=== PATIENT | male | born 1950 | race Caucasian/White ===

== ENCOUNTER 2021-12-07 13:05 | Inpatient (IN) | payer MEDICARE ==
[~2021-12-07 13:05] MED LIST: Iopamidol-370 76% 500 ML 1 ML ONE
[2021-12-07] MEDS ORDERED: Labetalol HCl 100 MG/20 ML VIAL ONE (13:13)
[2021-12-07 13:20] LABS: #Eosinphils 0.1 thou/uL (0.0-0.7); #Lymphocytes 1.3 thou/uL (1.20-3.40); #Monocytes 0.8 thou/uL (0.11-0.59); #Neutrophils 10.3 thou/uL (1.40-6.50); %Basophils 0.3 % (0.0-1.0); %Eosinophils 0.5 % (0.0-10.0); %Lymphocytes 10.1 % (21.0-51.0); %Monocytes 6.4 % (0.0-10.0); %Neutrophils 82.7 % (42.0-75.0); Hemoglobin 15.5 g/dL (14.0-18.0); Mean Corpuscular HGB CONC 32.4 g/dL (32.0-36.0); Mean Corpuscular Hemoglobin 32.4 pg (27.0-31.0); Mean Corpuscular Volume 99.9 fL (78.0-98.0); Mean Platelet Volume 7.4 fL (7.4-10.4); Platelet Count 251 thou/uL (130-400); RBC Distribution Width 11.9 % (11.5-14.5); White Blood Cell (WBC) Count 12.4 thou/uL (4.8-10.8)
[2021-12-07 13:41] LABS: ALT (SGPT) 19 U/L (8-55); AST (SGOT) 15 U/L (5-34); Albumin 3.3 g/dL (3.4-4.8); Alkaline Phosphatase 90 U/L (40-110); Anion Gap 15 mmol/L (10-20); BUN (Urea Nitrogen) 13 mg/dL (8.4-25.7); Bilirubin, Total 0.9 mg/dL (0.2-1.2); CK (CPK) 35 U/L (30-200); Calc. Creatinine Clearance 0 mL/min (70-130); Calcium 8.5 mg/dL (7.8-10.44); Carbon Dioxide 26 mmol/L (23-31); Chloride 100 mmol/L (98-107); Globulin 2.6 g/dL (2.4-3.5); Glucose 230 mg/dL (80-115); Lipase 22 U/L (8-78); Potassium 3.2 mmol/L (3.5-5.1); Protein, Total 5.9 g/dL (5.8-8.1); Sodium 138 mmol/L (136-145)
[2021-12-07 14:09] LABS: Bilirubin Negative (Negative); Blood, Urine Negative (Negative); Clarity Clear (Clear); Glucose, Urine (Dipstick) 150 mg/dL (Negative); Ketone, Urine Negative (Negative); Leukocyte Negative Leu/uL (Negative); Nitrite Negative (Negative); Protein, Urine (Dipstick) Negative (Neg-Trace); Urobilinogen Normal mg/dL (Less than 2)
[2021-12-07] MEDS ORDERED: Electrolyte Replacement Protocol 1 EACH FS SCH (15:30)
[2021-12-07 15:55] LABS: Magnesium 1.3 mg/dL (1.6-2.6)
[2021-12-07] MEDS ORDERED: Dextrose 5% in Water 1,000 ML IV PRN (16:20)
[2021-12-07] MEDS ORDERED: Dextrose 50% Abboject 50 ML SYRINGE SLOW IVP PRN (16:20)
[2021-12-07] MEDS ORDERED: Ondansetron PF 4 MG/2 ML Vial IVP PRN (16:25)
[2021-12-07] MEDS ORDERED: Acetaminophen 650 MG Suppository PR PRN (16:25)
[2021-12-07] MEDS ORDERED: NS 0.9% w/ 20 MEQ KCL 0 ML ONE (16:41)
[2021-12-07] MEDS: Potassium Chloride 20 MEQ in Premix Bag 1 BAG IVPB SCH (17:12)
[2021-12-07 17:15] LABS: Magnesium 1.3 mg/dL (1.6-2.6)
[2021-12-07 17:20] LABS: Troponin I 0.044 ng/mL (< 0.028)
[2021-12-07] MEDS ORDERED: Labetalol HCl 100 MG/20 ML VIAL SLOW IVP PRN (18:15)
[2021-12-07] MEDS ORDERED: Magnesium Sulfate In Water 4 GM in Premix Bag 1 BAG IVPB SCH (18:45)
[2021-12-07 19:58] LABS: SARS-CoV-2 NAA Rapid Test Not Detected (NotDetected)
[2021-12-07 20:36] LABS: Troponin I 0.043 ng/mL (< 0.028)
[2021-12-07 20:38] VITALS: BMI 30.4
[2021-12-07] MEDS ORDERED: Potassium Chloride 20 MEQ in Sodium Chloride 0.9% 250 ML 250 ML IVPB SCH (21:30)
[2021-12-07] MEDS ORDERED: methylPREDNISolone Sod Succ/PF 125 MG/2 ML VIAL IVP SCH (22:30)
[2021-12-08] MEDS ORDERED: hydrALAZINE 20 MG/ML VIAL SLOW IVP SCH (02:00)
[2021-12-08] MEDS: Potassium Chloride 20 MEQ in Premix Bag 1 BAG IVPB SCH (02:56)
[2021-12-08] MEDS ORDERED: Lidocaine Viscous Sol 2% 15 ml UD Cup FS SCH (03:45)
[2021-12-08] MEDS ORDERED: Lidocaine 2% Jelly 5 ML TUBE TOP SCH (03:45)
[2021-12-08 04:16] LABS: Bilirubin Negative (Negative); Blood, Urine Large (Negative); Glucose, Urine (Dipstick) 100 mg/dL (Negative); Ketone, Urine Negative (Negative); Leukocyte Negative (Negative); Nitrite Negative (Negative); Protein, Urine (Dipstick) 100 mg/dL (Neg-Trace); Specific Gravity, Urine 1.015 (1.005-1.030); Urobilinogen 0.2 mg/dL (Less than 2); pH, Urine 6.5 (5.0-9.0)
[2021-12-08 04:17] LABS: Clarity Cloudy (Clear)
[2021-12-08 04:19] LABS: RBC/HPF Greater than 50 HPF (0-3); WBC/HPF 0-3 HPF (0-3)
[2021-12-08 04:20] LABS: Urine Culture Reflex No No
[2021-12-08] MEDS ORDERED: Phenazopyridine HCl 100 MG TAB PO PRN (05:49)
[2021-12-08] MEDS: HumaLOG 300 UNITS/3 ML VIAL SC PRN ×4 (06:19→20:41)
[2021-12-08] MEDS: Dutasteride 0.5 MG CAP PO SCH (08:55)
[2021-12-08] MEDS: Docusate 100 MG CAP PO SCH ×2 (08:55→20:41)
[2021-12-08] MEDS: Tamsulosin HCl 0.4 MG CAP PO SCH (08:55)
[2021-12-08] MEDS ORDERED: methylPREDNISolone Sod Succ/PF 125 MG/2 ML VIAL IVP SCH (09:00)
[2021-12-08] MEDS ORDERED: Mycophenolate ER 180 MG TAB PO STA (10:17)
[2021-12-08] MEDS ORDERED: Tacrolimus 0.5 MG CAP PO STA (10:17)
[2021-12-08] MEDS ORDERED: predniSONE 5 MG TAB PO SCH (10:30)
[2021-12-08 10:36] LABS: #Lymphocytes 0.8 thou/uL (1.20-3.40); #Monocytes 0.3 thou/uL (0.11-0.59); #Neutrophils 16.8 thou/uL (1.40-6.50); %Eosinophils 0.1 % (0.0-10.0); %Lymphocytes 4.6 % (21.0-51.0); %Monocytes 1.9 % (0.0-10.0); %Neutrophils 93.4 % (42.0-75.0); Hemoglobin 17.2 g/dL (14.0-18.0); Mean Corpuscular HGB CONC 32.3 g/dL (32.0-36.0); Mean Corpuscular Hemoglobin 32.1 pg (27.0-31.0); Mean Corpuscular Volume 99.5 fL (78.0-98.0); Mean Platelet Volume 7.6 fL (7.4-10.4); Platelet Count 293 thou/uL (130-400); Red Blood Cell (RBC) Count 5.36 mill/uL (4.70-6.10); White Blood Cell (WBC) Count 17.9 thou/uL (4.8-10.8)
[2021-12-08 10:56] LABS: Anion Gap 19 mmol/L (10-20); BUN (Urea Nitrogen) 17 mg/dL (8.4-25.7); Calc. Creatinine Clearance 66 mL/min (70-130); Calcium 9.2 mg/dL (7.8-10.44); Carbon Dioxide 23 mmol/L (23-31); Chloride 101 mmol/L (98-107); Cholesterol 158 mg/dl (< 200 Desired); Glucose 346 mg/dL (80-115); HDL Cholesterol 40 mg/dL (>60 Neg Risk); LDL Cholesterol, Calculated 90 mg/dL; Magnesium 2.2 mg/dL (1.6-2.6); Potassium 3.9 mmol/L (3.5-5.1); Sodium 139 mmol/L (136-145); Triglycerides 140 mg/dL (Less than 150)
[2021-12-08] MEDS: Lactated Ringer's 1,000 ML IV SCH (15:01)
[2021-12-08] MEDS: Acetaminophen 325 MG TAB PO PRN (15:01)
[2021-12-08] MEDS ORDERED: traZODone HCl 50 MG TAB PO PRN (15:06)
[2021-12-08] MEDS: Tacrolimus 0.5 MG CAP PO SCH (20:41)
[2021-12-08] MEDS: hydrALAZINE 20 MG/ML VIAL SLOW IVP PRN (20:43)
[2021-12-08] MEDS: Melatonin 3 MG TAB PO PRN (21:42)
[2021-12-08] MEDS: MYCOPHENOLATE 180 MG PO SCH (21:46)
[2021-12-09] MEDS: Lactated Ringer's 1,000 ML IV SCH ×3 (01:15→20:58)
[2021-12-09 05:38] LABS: #Lymphocytes 1.5 thou/uL (1.20-3.40); #Monocytes 1.3 thou/uL (0.11-0.59); #Neutrophils 17.1 thou/uL (1.40-6.50); %Eosinophils 0.1 % (0.0-10.0); %Lymphocytes 7.7 % (21.0-51.0); %Monocytes 6.5 % (0.0-10.0); %Neutrophils 85.7 % (42.0-75.0); Hemoglobin 15.2 g/dL (14.0-18.0); Mean Corpuscular HGB CONC 32.5 g/dL (32.0-36.0); Mean Corpuscular Hemoglobin 32.7 pg (27.0-31.0); Mean Platelet Volume 7.7 fL (7.4-10.4); Platelet Count 254 thou/uL (130-400); RBC Distribution Width 12.1 % (11.5-14.5); Red Blood Cell (RBC) Count 4.63 mill/uL (4.70-6.10); White Blood Cell (WBC) Count 19.9 thou/uL (4.8-10.8)
[2021-12-09] MEDS: HumaLOG 300 UNITS/3 ML VIAL SC PRN ×4 (05:58→20:54)
[2021-12-09 06:01] LABS: Anion Gap 15 mmol/L (10-20); BUN (Urea Nitrogen) 19 mg/dL (8.4-25.7); Calc. Creatinine Clearance 82 mL/min (70-130); Calcium 8.6 mg/dL (7.8-10.44); Carbon Dioxide 25 mmol/L (23-31); Chloride 101 mmol/L (98-107); Glucose 216 mg/dL (80-115); Potassium 3.5 mmol/L (3.5-5.1); Sodium 137 mmol/L (136-145)
[2021-12-09] MEDS ORDERED: Potassium Chloride 20 MEQ TAB PO SCH (08:00)
[2021-12-09] MEDS: Tacrolimus 0.5 MG CAP PO SCH ×2 (08:46→20:46)
[2021-12-09] MEDS: Tamsulosin HCl 0.4 MG CAP PO SCH (08:46)
[2021-12-09] MEDS: Dutasteride 0.5 MG CAP PO SCH (08:46)
[2021-12-09] MEDS: predniSONE 5 MG TAB PO SCH (08:46)
[2021-12-09] MEDS: Docusate 100 MG CAP PO SCH ×2 (08:46→20:42)
[2021-12-09] MEDS: MYCOPHENOLATE 180 MG PO SCH ×2 (08:47→20:43)
[2021-12-09] MEDS ORDERED: cefTRIAXone\\ROCEPHIN 1 GM in Sodium Chloride 0.9% 100 ML IVPB SCH (09:15)
[2021-12-09] MEDS ORDERED: Carvedilol 6.25 MG TAB PO SCH (10:15)
[2021-12-09] MEDS: hydrALAZINE 20 MG/ML VIAL SLOW IVP PRN (19:47)
[2021-12-09] MEDS: Carvedilol 6.25 MG TAB PO SCH (20:42)
[2021-12-09] MEDS: Melatonin 3 MG TAB PO PRN (20:42)
[2021-12-09] MEDS: Acetaminophen 325 MG TAB PO PRN (21:26)
[2021-12-10] MEDS: hydrALAZINE 20 MG/ML VIAL SLOW IVP PRN ×2 (03:58→20:09)
[2021-12-10 05:42] LABS: #Eosinphils 0.1 thou/uL (0.0-0.7); #Lymphocytes 1.6 thou/uL (1.20-3.40); #Monocytes 1.2 thou/uL (0.11-0.59); #Neutrophils 10.2 thou/uL (1.40-6.50); %Basophils 0.3 % (0.0-1.0); %Eosinophils 0.5 % (0.0-10.0); %Lymphocytes 11.9 % (21.0-51.0); %Monocytes 9.4 % (0.0-10.0); Hemoglobin 15.1 g/dL (14.0-18.0); Mean Corpuscular HGB CONC 32.9 g/dL (32.0-36.0); Mean Corpuscular Hemoglobin 32.5 pg (27.0-31.0); Mean Platelet Volume 7.1 fL (7.4-10.4); Platelet Count 262 thou/uL (130-400); RBC Distribution Width 12.2 % (11.5-14.5); Red Blood Cell (RBC) Count 4.63 mill/uL (4.70-6.10)
[2021-12-10 06:08] LABS: Anion Gap 16 mmol/L (10-20); BUN (Urea Nitrogen) 17 mg/dL (8.4-25.7); Calc. Creatinine Clearance 100 mL/min (70-130); Calcium 8.8 mg/dL (7.8-10.44); Carbon Dioxide 21 mmol/L (23-31); Chloride 104 mmol/L (98-107); Glucose 201 mg/dL (80-115); Potassium 3.5 mmol/L (3.5-5.1); Sodium 137 mmol/L (136-145)
[2021-12-10 06:28] LABS: Hemoglobin A1c 8.5 % (4.0-6.0)
[2021-12-10] MEDS: Acetaminophen 325 MG TAB PO PRN (06:31)
[2021-12-10] MEDS: Lactated Ringer's 1,000 ML IV SCH (06:32)
[2021-12-10] MEDS: HumaLOG 300 UNITS/3 ML VIAL SC PRN ×3 (06:33→17:15)
[2021-12-10] MEDS ORDERED: Potassium Chloride 20 MEQ TAB PO SCH (08:00)
[2021-12-10] MEDS: predniSONE 5 MG TAB PO SCH (08:23)
[2021-12-10] MEDS: Tamsulosin HCl 0.4 MG CAP PO SCH (08:23)
[2021-12-10] MEDS: Dutasteride 0.5 MG CAP PO SCH (08:24)
[2021-12-10] MEDS: cefTRIAXone\\ROCEPHIN 1 GM in Sodium Chloride 0.9% 100 ML IVPB SCH (08:24)
[2021-12-10] MEDS: Carvedilol 6.25 MG TAB PO SCH ×2 (08:24→20:08)
[2021-12-10] MEDS: Tacrolimus 0.5 MG CAP PO SCH ×2 (08:24→20:07)
[2021-12-10] MEDS: Docusate 100 MG CAP PO SCH ×2 (08:24→20:08)
[2021-12-10] MEDS: MYCOPHENOLATE 180 MG PO SCH ×2 (08:40→20:22)
[2021-12-10 08:41] LABS: Magnesium 1.6 mg/dL (1.6-2.6)
[2021-12-10] MEDS ORDERED: Magnesium 2 GM/50 ML(in water) 2 GM in Premix Bag 1 BAG IVPB SCH (10:00)
[2021-12-10] MEDS ORDERED: Aspirin 81 mg Enteric Coated Tablet PO SCH (15:00)
[2021-12-10] MEDS ORDERED: Amlodipine 5 MG TAB PO SCH (17:45)
[2021-12-10] MEDS: Magnesium Oxide 400 MG TAB PO SCH (20:08)
[2021-12-10] MEDS ORDERED: Non-Formulary Item 1 EACH (Insulin Detemir [Levemir] 100 UNIT/ML Vial) SQ SCH (21:00)
[2021-12-10] MEDS ORDERED: Insulin Glargine 30 UNITS/0.3 ML VIAL SC SCH ×2 (21:00)
[2021-12-10] MEDS ORDERED: Atorvastatin Calcium 40 MG TAB PO SCH (21:00)
[2021-12-11] MEDS: Acetaminophen 325 MG TAB PO PRN ×2 (01:05→09:20)
[2021-12-11 05:49] LABS: #Eosinphils 0.1 thou/uL (0.0-0.7); #Lymphocytes 1.1 thou/uL (1.20-3.40); #Monocytes 1.2 thou/uL (0.11-0.59); #Neutrophils 9.8 thou/uL (1.40-6.50); %Basophils 0.2 % (0.0-1.0); %Eosinophils 0.7 % (0.0-10.0); %Lymphocytes 9.1 % (21.0-51.0); %Monocytes 10.1 % (0.0-10.0); %Neutrophils 79.9 % (42.0-75.0); Hemoglobin 14.2 g/dL (14.0-18.0); Mean Corpuscular HGB CONC 33.4 g/dL (32.0-36.0); Mean Corpuscular Hemoglobin 33.1 pg (27.0-31.0); Mean Corpuscular Volume 99.2 fL (78.0-98.0); Mean Platelet Volume 7.3 fL (7.4-10.4); Platelet Count 232 thou/uL (130-400); RBC Distribution Width 12.2 % (11.5-14.5); Red Blood Cell (RBC) Count 4.29 mill/uL (4.70-6.10); White Blood Cell (WBC) Count 12.3 thou/uL (4.8-10.8)
[2021-12-11] MEDS: HumaLOG 300 UNITS/3 ML VIAL SC PRN ×2 (05:57→12:18)
[2021-12-11 06:08] LABS: Anion Gap 12 mmol/L (10-20); BUN (Urea Nitrogen) 14 mg/dL (8.4-25.7); Calc. Creatinine Clearance 104 mL/min (70-130); Calcium 8.4 mg/dL (7.8-10.44); Carbon Dioxide 24 mmol/L (23-31); Chloride 104 mmol/L (98-107); Glucose 207 mg/dL (80-115); Magnesium 1.8 mg/dL (1.6-2.6); Potassium 3.5 mmol/L (3.5-5.1); Sodium 136 mmol/L (136-145)
[2021-12-11] MEDS ORDERED: Magnesium 2 GM/50 ML(in water) 2 GM in Premix Bag 1 BAG IVPB SCH (08:00)
[2021-12-11] MEDS ORDERED: Potassium Chloride 20 MEQ TAB PO SCH ×2 (08:00→12:00)
[2021-12-11] MEDS ORDERED: Aspirin 81 mg Enteric Coated Tablet PO SCH (09:00)
[2021-12-11] MEDS: cefTRIAXone\\ROCEPHIN 1 GM in Sodium Chloride 0.9% 100 ML IVPB SCH (09:11)
[2021-12-11] MEDS: predniSONE 5 MG TAB PO SCH (09:12)
[2021-12-11] MEDS: Magnesium Oxide 400 MG TAB PO SCH (09:12)
[2021-12-11] MEDS: Tamsulosin HCl 0.4 MG CAP PO SCH (09:13)
[2021-12-11] MEDS: Dutasteride 0.5 MG CAP PO SCH (09:13)
[2021-12-11] MEDS: Carvedilol 6.25 MG TAB PO SCH (09:13)
[2021-12-11] MEDS: Tacrolimus 0.5 MG CAP PO SCH (09:14)
[2021-12-11] MEDS: Docusate 100 MG CAP PO SCH (09:14)
[2021-12-11] MEDS: MYCOPHENOLATE 180 MG PO SCH (09:15)
[2021-12-11] MEDS: hydrALAZINE 20 MG/ML VIAL SLOW IVP PRN (12:16)
[2021-12-11] MEDS: PHOS-NAK 1 PKT PACK PO SCH ×2 (12:17→17:04)
[2021-12-11 15:40] VITALS: TEMP 98.5
[2021-12-11 16:40] LABS: Tacrolimus 7.8 ng/mL (2.0-20.0)
[2021-12-11 17:50] VITALS: BP 131/53
[2021-12-12] MEDS ORDERED: Potassium Chloride 20 MEQ TAB PO SCH (08:00)
== END 2021-12-11 18:42 | disposition home health service (06) | DRG 305 ==
LOC: ERS 13:05 → ERHOLD 15:11 → NEURO 18:50 → OBSVTOIN 12-09 15:41
PROVIDERS: ADMIT Internal Medicine; ATTEND Internal Medicine
DX: I16.0 Hypertensive urgency (principal); N17.9 Acute kidney failure, unspecified; I50.22 Chronic systolic (congestive) heart failure; T86.19 Other complication of kidney transplant; I69.354 Hemiplegia and hemiparesis following cerebral infarction affecting left non-dominant side; Z20.822 Contact with and (suspected) exposure to COVID-19; R31.0 Gross hematuria; N40.1 Benign prostatic hyperplasia with lower urinary tract symptoms; R33.8 Other retention of urine; F01.50 Vascular dementia, unspecified severity, without behavioral disturbance, psychotic disturbance, mood disturbance, and anxiety; R79.89 Other specified abnormal findings of blood chemistry; E87.6 Hypokalemia; E83.42 Hypomagnesemia; D72.829 Elevated white blood cell count, unspecified; Y83.8 Other surgical procedures as the cause of abnormal reaction of the patient, or of later complication, without mention of misadventure at the time of the procedure; E11.319 Type 2 diabetes mellitus with unspecified diabetic retinopathy without macular edema; H54.3 Unqualified visual loss, both eyes; I11.0 Hypertensive heart disease with heart failure; I25.10 Atherosclerotic heart disease of native coronary artery without angina pectoris; E78.5 Hyperlipidemia, unspecified; I69.320 Aphasia following cerebral infarction; Z95.1 Presence of aortocoronary bypass graft; Z88.6 Allergy status to analgesic agent; Z79.82 Long term (current) use of aspirin; Z79.02 Long term (current) use of antithrombotics/antiplatelets; Z79.899 Other long term (current) drug therapy; Z79.4 Long term (current) use of insulin; Z90.49 Acquired absence of other specified parts of digestive tract; Z90.5 Acquired absence of kidney
CPT/HCPCS: 36415; 36416; 51700; 51701; 70450; 70496; 70498; 70551; 71045; 74176; 80048; 80053; 80061; 80197; 81001; 81003; 82550; 82553; 83036; 83690; 83735; 84100; 84443; 84484; 85025; 87086; 93005; 95712; 95819; 95957; 96374; 96375; 96376; G0378; J0360; J0696; J1815; J2930; J3475; J3480; J3490; J7050; J7120; J7507; J7512; J7518; Q9967; U0002